=== PATIENT | male | born 1955 | race Caucasian/White ===

== ENCOUNTER 2016-12-22 16:47 | Emergency (ER) | payer OTHER ==
[~2016-12-22] VITALS: Ht 177.8 cm; Wt 116.0 kg
[2016-12-22] MEDS ORDERED: SODIUM CHLORIDE 0.9% 1,000 ML IV ONE (17:20)
[2016-12-22] MEDS ORDERED: ENZA40CA PO (17:23)
[2016-12-22] MEDS ORDERED: ATOR40TA78 PO (17:23)
[2016-12-22] MEDS ORDERED: LOSA50TA6 PO (17:23)
[2016-12-22] MEDS ORDERED: KETOROLAC 30 MG/1 ML IVPush ONE (17:30)
[2016-12-22] MEDS ORDERED: DIAZEPAM 5 MG/ML, 2ML IVPush ONE (17:30)
[2016-12-22] MEDS ORDERED: SODIUM CHLORIDE FLUSH 10ML SYR IVF ONE (17:30)
[2016-12-22] MEDS ORDERED: MORPHINE SULFATE 4 MG/ML, 1ML IVPush PRN (17:30)
[2016-12-22] MEDS ORDERED: DIAZEPAM 5 MG/ML, 2ML ONE (17:43)
[2016-12-22] MEDS ORDERED: KETOROLAC 30 MG/1 ML ONE (17:43)
[2016-12-22] MEDS ORDERED: MORPHINE SULFATE 4 MG/ML, 1ML ONE (17:43)
[2016-12-22 18:26] VITALS: BP 158/119
== END 2016-12-22 20:10 | disposition home or self-care (01) ==
LOC: ED 19:45
DX: M47.896 Other spondylosis, lumbar region (principal); M48.06 Spinal stenosis, lumbar region; M54.16 Radiculopathy, lumbar region; I10 Essential (primary) hypertension; M54.9 Dorsalgia, unspecified; G89.29 Other chronic pain
CPT/HCPCS: 72131; 96361; 96374; 96375; J1885; J3360; J7030